=== PATIENT | female | born 1985 | race Caucasian/White ===

== ENCOUNTER → 2017-10-16 10:47 | Outpatient (CLI) | payer OTHER, SELFPAY ==
[2017-10-16 12:34] LABS: Alanine Aminotransferase 24 IU/L (9-52); Aspartate Aminotransferase 30 IU/L (14-36); BUN Creatinine Ratio 18.6 (6-22); Blood Urea Nitrogen 13 mg/dL (7-17); Estimated Glomerular Filt Rate > 60.0 mL/min (>60)
[2017-10-16 12:41] LABS: Free T4, Direct Thyroxine 1.02 ng/dL (0.78-2.19)
[2017-10-16 12:55] LABS: Thyroid Stimulating Hormone 1.06 uIU/mL (0.47-4.68)
[2017-10-16 13:06] LABS: Hemoglobin A1C% w Est Avg Glu 5.1 % (4.0-6.0)
== END ==
PROVIDERS: PCP Family Medicine; Visit Provider Physician Assistant Medical
DX: L29.2 Pruritus vulvae (principal)
CPT/HCPCS: 36415; 82565; 83036; 84439; 84443; 84450; 84460; 84520